=== PATIENT | male | born 1960 ===

== ENCOUNTER 2021-03-17 09:52 | Day surgery (SDC) | payer OTHER ==
[~2021-03-17] VITALS: Ht 162.6 cm; Wt 81.7 kg
[2021-03-17 12:02] VITALS: BP 131/87; PULSE 68; TEMP 97.3
[2021-03-17] MEDS ORDERED: GLUCOPHAGE1000 MG PO (12:05)
[2021-03-17] MEDS ORDERED: CRESTOR40 MG PO (12:05)
[2021-03-17] MEDS ORDERED: VITAMIN D3400 I1 PO (12:06)
[2021-03-17] MEDS ORDERED: COZAAR100 MG PO (12:07)
[2021-03-17] MEDS ORDERED: CIALIS20 MG PO (12:08)
[2021-03-17] MEDS ORDERED: CRANBERRY 100 M1 SGL PO (12:09)
[2021-03-17] MEDS ORDERED: JARDIANCE25 PO (12:16)
[2021-03-17] MEDS ORDERED: NOVOLOG FLEX100 U/ML SQ (12:18)
[2021-03-17] MEDS ORDERED: LANTUS SOLOS100 U/ML SQ (12:21)
[2021-03-17] MEDS ORDERED: TRULICITY1.5 MG/0.5 SQ (12:22)
[2021-03-17] MEDS ORDERED: ANTACID500 M1 PO (12:22)
[2021-03-17] MEDS ORDERED: [UNRECOGNIZED DRUG - REMARK] PO (12:23)
[2021-03-17 12:45] VITALS: BP 113/70; PULSE 72; TEMP 97
--- NOTE | 2021-03-17 12:45 | NUR ---
The patient arrived back to [facility] from the endoscopy suite at this time. The patient ambulated from the cart to the recliner in his room with the stand by assistance of two nurses and appeared to tolerate the activity well. Vital signs were started post operatively. The patient's is at his bedside. The patient agrees to try some orange juice. Will continue to monitor the patient.
--- NOTE | 2021-03-17 13:00 | NUR ---
The patient appeared to tolerate the juice well and denies wanting anything further to eat or drink at this time. The patient's remains at his bedside. Vital signs appear stable. Call light is within reach. Will continue to monitor the patient.
[2021-03-17 13:02] VITALS: BP 117/74; PULSE 72; TEMP 97
[2021-03-17 13:15] VITALS: BP 119/68; PULSE 73
--- NOTE | 2021-03-17 13:20 | NUR ---
The patient has spoke with Dr. Maxwell and verbalizes a desire to be discharged home. The patient's IV to his right hand was removed and a pressure dressing was applied to the site. The nurse instructed the patient to get dressed and notify the staff when he is ready to be escorted out.
--- NOTE | 2021-03-17 13:33 | NUR ---
The patient was escorted out via wheelchair to a private vehicle by MICAH Gillette. The patient's belongings and discharge paperwork were sent with him. The patient's is present to drive him home.
== END 2021-03-17 13:33 | disposition home or self-care (01) ==
LOC: SDCO 09:52
DX: D12.4 Benign neoplasm of descending colon (principal); D12.5 Benign neoplasm of sigmoid colon; Z20.822 Contact with and (suspected) exposure to COVID-19; I10 Essential (primary) hypertension; E78.2 Mixed hyperlipidemia; G47.33 Obstructive sleep apnea (adult) (pediatric); E13.9 Other specified diabetes mellitus without complications; Z79.4 Long term (current) use of insulin; Z79.84 Long term (current) use of oral hypoglycemic drugs; Z79.899 Other long term (current) drug therapy; N52.9 Male erectile dysfunction, unspecified
CPT/HCPCS: J2704; J7030